=== PATIENT | female | born 1950 | race Hispanic/Latino ===

== ENCOUNTER 2022-04-03 06:30 | Day surgery (SDC) | payer MEDICARE ==
[2022-04-03] MEDS ORDERED: ASPIRIN EC 325 MG TAB PO ONE (07:02)
[2022-04-03 07:36] LABS: Hematocrit 44.2 % (30.3-42.9); Hemoglobin 14.9 gm/dl (10.1-14.3); INR 0.96 (0.87-1.13); Mean Corpuscular HGB Conc 34 % (30-34); Mean Corpuscular Volume 98 fl (79-97); Partial Thromboplastin Time 35.3 Sec. (24.2-36.6); Platelet Count 179 K/mm3 (140-440); Red Blood Count 4.51 M/mm3 (3.65-5.03); Red Cell Distribution Width 14.3 % (13.2-15.2)
[2022-04-03 07:37] LABS: Calcium 9.6 mg/dL (8.4-10.2)
[2022-04-03] MEDS ORDERED: SODIUM CHLORIDE 0.9% 500 ML 500 ML IV SCH (08:00)
[2022-04-03] MEDS ORDERED: HEPARIN/NS 5000 UNIT/500ML 1,000 ML IR ONE (08:35)
[2022-04-03] MEDS ORDERED: NITROGLYCERIN SYRINGE 3 ML ONE (08:35)
[2022-04-03] MEDS ORDERED: VERAPAMIL 5 MG/2 ML INJ ONE (08:35)
[2022-04-03] MEDS ORDERED: HEPARIN 10,000 UNITS/10 ML VIAL ONE (08:35)
[2022-04-03 08:53] LABS: Total Cells Counted 100
[2022-04-03 08:55] LABS: Anisocytosis Few; RBC Morphology Normal
[2022-04-03 08:56] LABS: Platelet Estimate Consistent w Auto
[2022-04-03] MEDS: MIDAZOLAM 2 MG/2 ML INJ ONE ×3 (09:02→09:19)
[2022-04-03] MEDS: LIDOCAINE (1%) 10 MG/1 ML VIAL 20 ML MDV ONE ×2 (09:02→09:16)
[2022-04-03] MEDS: fentaNYL 100 MCG/2 ML INJ ONE ×2 (09:02→09:10)
--- NOTE | 2022-04-03 10:28 | Electrocardiograph Report ---
[facility] Test Date: 2022-04-03 Test Time: 07:52:41 Pat Name: CARROLL PARKER Department: Room: Gender: F Flame Burner: MACK : [id number] Requested By: CASH CUBA Order Number: [id number] Reading MD: Cash Cuba Measurements Intervals [place] Rate: 58 P: 61 UT: 208 QRS: 32 QRSD: 93 T: 242 QT: 458 QTc: 453 Interpretive Statements Sinus rhythm Ventricular premature complex Anterior infarct, old No previous ECG available for comparison Electronically Signed On 04-03-2022 10:28:02 EDT by Cash Cuba
--- NOTE | 2022-04-03 10:42 | Short Stay Summary ---
Short Stay Documentation Date of service: 04/03/22 - History H&P: obtained from office - Allergies and Medications Current Medications: Allergies Penicillins Allergy (Verified 04/03/22 07:02) Rash Home Medications Medication Instructions Recorded Confirmed Last Taken Type Anastrozole [Arimidex] 1 mg PO DAILY 04/03/22 04/03/22 04/02/22 History Bupropion HCl [Wellbutrin XL] 300 mg PO QAM 04/03/22 04/03/22 04/02/22 History Ezetimibe [Zetia] 10 mg PO DAILY 04/03/22 04/03/22 04/02/22 History Levothyroxine [Synthroid] 150 mcg PO QAM 04/03/22 04/03/22 04/02/22 History Metoprolol Xl [Metoprolol 25 mg PO QDAY 04/03/22 04/03/22 04/02/22 History SUCCINATE ER TAB] Omeprazole 40 mg PO DAILY 04/03/22 04/03/22 04/02/22 History Quinapril/Hydrochlorothiazide 1 tab PO DAILY 04/03/22 04/03/22 04/02/22 History [Quinapril-Hctz 20-25 mg Tab] amLODIPine [Norvasc] 10 mg PO DAILY 04/03/22 04/03/22 04/02/22 History Active Medications Sodium Chloride (Nacl 0.9% 500 Ml) 500 mls @ 50 mls/hr IV DIRECT LYNNETTE Stop: 04/03/22 17:59 Last Admin: 04/03/22 08:21 Dose: 50 mls/hr - Physical exam Integumentary: other (Dressing clean dry and intact with no signs of bleeding or hematoma) - Brief post op/procedure progress note Date of procedure: 04/03/22 Pre-op diagnosis: Aortic stenosis Post-op diagnosis: same Anesthesia: local Estimated blood loss: minimal - Hospital course Hospital course: Patient presents today for cardiac cath for evaluation of aortic stenosis. Patient tolerated procedure well with no complications. PAtient found to have no evidence of CAD howver patient found to have severe aortic stenosis. Patient to be discharged home and to follow-up as an outpatient Dr. Meyers regarding aortic stenosis. Plan of care discussed with patient who verbalized understanding - Disposition Condition at discharge: Good Disposition: 01 HOME / SELF CARE / HOMELESS - Discharge Diagnoses (1) Aortic stenosis Status: Acute (2) Hypertension Status: Acute (3) Hyperlipidemia Status: Acute (4) Obesity Status: Acute Short Stay Discharge Plan Activity: advance as tolerated Diet: low fat, low cholesterol, low salt Wound: keep clean and dry Follow up with: FERNANDO CASAREZ MD [Primary Care Provider] - 7 Days GANESH CUBA MD [Staff Physician] - 04/16/22 9:15 am (Patient to follow-up with Dr. MICHELLE Cuba on 04/16/2022 at 9:15 AM at our [place] location. Phone #[phone]) Forms: [employer] PCI D/C Instructions
--- NOTE | 2022-04-03 10:56 | Cardiac Catherization Report ---
DATE OF PROCEDURE: 04/03/2022 REFERRING PHYSICIAN: Dr. Rubén Garrison. INDICATIONS FOR PROCEDURE: The patient is a very pleasant 71-year-old female who presents here for cardiac evaluation. She referred for heart catheterization. She has known severe aortic stenosis and moderate AI, which is symptomatic, referred for preoperative evaluation. Risks, benefits, alternatives explained at length prior to obtaining informed consent. PROCEDURE IN DETAIL: The patient was brought to clinical laboratory science professor in a postabsorptive state, prepped and draped in sterile fashion. An 8 mL of 2% lidocaine used to anesthetize the right wrist. A standard 6-Icelandic hydrophilic sheath used to cannulate the right radial artery via modified Seldinger technique. All exchanges performed to exchange a J-tip guidewire, a JL4 catheter used to engage the left main. No dampening or ventricularization. Cineangiography performed in all projections. JR4 catheter used to cross the aortic valve under fluoroscopic guidance. Left ventriculography performed in 30-degree RM and 30-degree MOZAMBICAN projections via hand injections, catheter flushed. Manual pullback performed with continuous pressure monitoring. Catheter was used to engage the right coronary. No dampening or ventricularization. Cineangiography performed in all projections. Catheter exchanged for a pigtail catheter, a root aortogram is performed with a power injector in the MOZAMBICAN projection. Next, catheter removed from the body of wire, sheath removed. Manual pressure used to achieve hemostasis. I directly supervised the administration of moderate sedation with fentanyl and Versed from 9:05 a.m. to 9:37 a.m. No immediate complications. DATA: Aortic pressure is 126/80, LV pressure is 210 with LVEDP of 20 mmHg. Left ventriculography reveals normal systolic performance, estimated ejection fraction of 60-65%. Root aortography reveals normal contour. No evidence of dissection penetrating aortic ulcer. Moderate 2-3+ aortic insufficiency is identified. CORONARY ANATOMY: This is a right dominant system. Right coronary is a moderate sized vessel, courses AV groove. No significant disease. Left main without significant disease, it bifurcates into the left anterior descending, left circumflex. Left circumflex is moderate sized vessel, courses AV groove. No significant disease. LAD is a moderate-sized vessel, courses anterior intergroove, wraps around the apex. No significant disease. CONCLUSIONS: 1. No angiographic evidence of significant epicardial coronary artery disease in the right dominant system. 2. Severe aortic stenosis with a [id number] gradient of 80-90 mmHg and a mean gradient of 48-50 mmHg. 3. Moderate central aortic insufficiency. 4. Normal left ventricular systolic performance, estimated ejection fraction of 60-65%. 5. Normal LVEDP. Given findings of severe aortic stenosis and moderate AI, which I believe are symptomatic, discussed with cardiac surgery at [facility], Dr. Robert Meyers. The patient will follow up with Dr. Meyers in the office for consideration of elective aortic valve replacement. She is clinically stable. Results of procedure explained at length to the patient and her daughter. Standard right radial care. Follow up with Dr. Rubén Garrison in the office after surgical evaluation. TID: [id number] RECEIPT: [id number] LALITA/LAURA/YUE
[2022-04-03] MEDS ORDERED: traMADol 50 MG TAB PO PRN (11:00)
[2022-04-03] MEDS ORDERED: HYDROcodone/ACETAMINOPHEN 5-325 MG TAB PO PRN (11:00)
[2022-04-03 12:16] VITALS: BP 166/82
== END 2022-04-03 12:45 | disposition home or self-care (01) ==
LOC: CATHLABREC 06:30
PROVIDERS: ATTEND Internal Medicine
DX: I35.0 Nonrheumatic aortic (valve) stenosis (principal); I10 Essential (primary) hypertension; E78.5 Hyperlipidemia, unspecified; E66.9 Obesity, unspecified; G47.30 Sleep apnea, unspecified; K21.9 Gastro-esophageal reflux disease without esophagitis; E03.9 Hypothyroidism, unspecified; F32.9 Major depressive disorder, single episode, unspecified; Z88.0 Allergy status to penicillin; Z79.899 Other long term (current) drug therapy; Z87.891 Personal history of nicotine dependence; Z90.12 Acquired absence of left breast and nipple; Z98.890 Other specified postprocedural states; Z68.42 Body mass index [BMI] 45.0-49.9, adult
CPT/HCPCS: 36415; 80048; 85007; 85025; 85610; 85730; 93005; 93458; 93567; 99156; 99157; C1894; J1644; J1815; J2250; J3010; J7040; Q9967